=== PATIENT | female | born 1990 | race Caucasian/White ===

== ENCOUNTER 2018-07-06 13:02 | Inpatient (IN) ==
[2018-07-06 03:36] LABS: Bilirubin,Urine Negative (Negative); Blood,Urine Negative (Negative); Clarity,Urine Cloudy (Clear); Color,Urine Yellow (Yellow); Glucose,Urine (UA) Normal (Normal); Ketones,Urine Negative (Negative); Leukocyte Esterase,Urine Moderate (Negative); Nitrite,Urine Negative (Negative); PH,Urine 6.5 pH Units (5.0-8.0); Protein,Urine Negative (Neg-Trace); Specific Gravity,Urine 1.014 (1.010-1.025); Urobilinogen,Urine Normal (Normal)
[2018-07-06 03:39] LABS: Bacteria,Urine Many per hpf (None-Few); Hyaline Casts,Urine None Seen per lpf (None-Few); RBC,Urine 0-3 per hpf (0-3); Squamous Epithelial Cell,Urine Many per lpf (None-Few); WBC,Urine 30-50 per hpf (0-3)
[2018-07-06 03:46] LABS: Amphetamine Screen,Urine Negative ng/mL (Cutoff=1000); Barbiturate Screen,Urine Negative ng/mL (Cutoff=200); Benzodiazepines Screen,Urine Negative ng/mL (Cutoff=200); Cannabinoid Screen,Urine Negative ng/mL (Cutoff = 50); Cocaine Screen,Urine Negative ng/mL (Cutoff= 300); Opiate Screen,Urine Negative ng/mL (Cutoff=300); Phencyclidine Screen,Urine Negative ng/mL (Cutoff=25)
[2018-07-06 04:56] LABS: Creatinine,Urine 39 mg/dL; Protein/Creatinine Ratio,Urine 0.21 mg/mg (0.00-0.20)
[2018-07-06 05:42] LABS: Alanine Aminotransferase 8 Units/L (7-52); Aspartate Amino Transferase 11 Units/L (13-39); BUN/Creatinine Ratio 15 (6-26); Blood Urea Nitrogen 9 mg/dL (6-20); Lactate Dehydrogenase 112 Units/L (140-271); Uric Acid 3.9 mg/dL (2.3-7.6); eGFR For Non-African Americans > 60 (> 60)
--- NOTE | 2018-07-06 06:20 | OB/GYN Progress Note ---
Date of Encounter: 07/06/18 Time of Encounter: 06:17 - Assessment and Plan (1) 38 weeks gestation of Current Visit: Yes Status: Acute (2) Elevated blood pressure affecting in third trimester, antepartum Current Visit: Yes Status: Acute Consistent elevated BPs in triage (146/97, 151/98, 138/92 139/98), denies all PIH symptoms, PIH labs negative, Discussed patient with continue to monitor b/p, start 24 hour urine , continuous monitoring, keep NPO Subjective - Subjective Interval history: 38+[address] Fernandez previous C/S, presents to triage with vaginal pain, and cramping, reports good movement, denies vaginal bleeding or leaking of fluid, headache, visual changes, or RUQ pain. Antepartum ROS: movement normal, contractions, no loss of fluid, no vaginal bleeding Objective - Exam FHR: auscultation normal FHR comments: baseline 125 Abdomen: Present: soft, gravid Cervical dilation: closed on serial cervical exams - Labs Labs: Abnormal lab results AST 11 Units/L (13-39) L 07/06/18 04:41 Lactate Dehydrogenase 112 Units/L (140-271) L 07/06/18 04:41 Urine Clarity Cloudy (Clear) A 07/06/18 03:31 Ur Leukocyte Esterase Moderate (Negative) H 07/06/18 03:31 Urine Microscopic WBC 30-50 per hpf (0-3) H 07/06/18 03:31 Ur Squamous Epith Cells Many per lpf (None-Few) H 07/06/18 03:31 Urine Bacteria Many per hpf (None-Few) H 07/06/18 03:31 Ur Culture Indicated? NO. (NO) A 07/06/18 03:31 Protein/Creatinin Ratio 0.21 mg/mg (0.00-0.20) H 07/06/18 03:31
--- NOTE | 2018-07-06 12:48 | OB/GYN History & Physical ---
Date of Encounter: 07/06/18 Time of Encounter: 12:46 Assessment and Plan (1) 38 weeks gestation of Current visit: Yes Status: Acute (2) Gestational hyperglycemia Current visit: Yes Status: Acute (3) Previous section Current visit: Yes Status: Acute Juju is a 28-year-old female 3 para 1011 at 38 weeks and 1 day. Patient presents to labor and delivery with pelvic pressure. On presentation she has elevated blood pressures many of them in the severe range. All labs were normal. Patient is gestational hypertension with severe features. Patient currently complaining of headache. Will plan on repeat section. Consent obtained. History of Present Illness Chief complaint: pelvic pressure HPI: Ms. Noel is a 28 year old female P1 who presents to L&D complaining of pelvic pressure at 38.1 weeks. She presents to labor and delivery complaining of pelvic pressure. A presentation she has a slight headache today. Blood pressures ranging from high 130s to 170 over 80s to 100. Patient denies any vaginal bleeding or discharge. Baby is very active. Patient is nothing by mouth at this point. He has had blood pressures in the severe range. Because of this we will be planning on performing her repeat section. She has allergies to Vicodin. Current medications include her vitamins. She has no chronic medical conditions. Surgical history includes an ACL repair, MCL repair, previous section for macrosomia. She has no history of abnormal Pap smears, STDs or pelvic infections. She has no history of abnormal breast findings. Socially she denies tobacco, alcohol, illicit drug use. Family history significant for paternal grandmother with breast cancer; maternal grandfather with throat cancer; large family history of mental illness. Past Med Surg Social Fam HX - Past Medical History Medical history: no medical history Psychiatric history: no psych history - Past Surgical History Surgical History: Additional surgical history: Left ACL - Social History Smoking Status: Never smoker Smokeless Tobacco Status: No Alcohol use: none Drug use: none - Family History Mother Living Status: Still Living Hx Family GI Disorders: No (No GB issues) Father Adopted: [place]: Mitchel Connell Family Member Ethnicity: Non- Living Status: Still Living Hx Family Cardiac Disorders: Yes (hypertension) Hx Family Respiratory Disorders: No Hx Family Cancer: No Hx Family GI Disorders: No Hx Family Genitourinary Disorders: No Hx Family Endocrine Disorder: No Hx Family Musculoskeletal Disorders: No Hx Family Neuromuscular Disorders: No Hx Family Neurologic Disorders: No Hx Family HEENT Disorders: No Hx Family Autoimmune Disorders: No Hx Family Reproductive Disorders: No Hx Family Psychosocial Disorders: No Hx Family Medical Disorders: No Obstetrical History - Pregnancies : 3 Para: 1 Livin Medications and Allergies 3 Allergy/AdvReac Type Severity Reaction Status Date / Time No Known Allergies Allergy Verified 07/14/17 14:22 Review of System OB All systems PM: reviewed and no additional remarkable complaints except as stated Exam - Constitutional Constitutional: well developed, well nourished, no acute distress, obese - HEENT HEENT: PERRL - Neck Neck exam: full ROM - Lungs Respiratory exam: CTAB - Cardiovascular Cardiovascular exam: RRR - Breasts Breast: bilateral: normal - Abdomen Abdomen: Present: bowel sounds normal, gravid, non tender - Extremities Extremities exam: full ROM - Vagina Vagina: Present: normal moisture - Uterus Uterus exam: Present: normal size Results Result Diagrams: 07/06/18 04:41 Abnormal lab results AST 11 Units/L (13-39) L 07/06/18 04:41 Lactate Dehydrogenase 112 Units/L (140-271) L 07/06/18 04:41 Urine Clarity Cloudy (Clear) A 07/06/18 03:31 Ur Leukocyte Esterase Moderate (Negative) H 07/06/18 03:31 Urine Microscopic WBC 30-50 per hpf (0-3) H 07/06/18 03:31 Ur Squamous Epith Cells Many per lpf (None-Few) H 07/06/18 03:31 Urine Bacteria Many per hpf (None-Few) H 07/06/18 03:31 Ur Culture Indicated? NO. (NO) A 07/06/18 03:31 Protein/Creatinin Ratio 0.21 mg/mg (0.00-0.20) H 07/06/18 03:31 All other labs normal. - VTE Reasons for not Prescribing Prophylaxis: Treatment not Indicated - Low risk for VTE
[~2018-07-06 13:02] MED LIST: Acetaminophen 325 MG TABLET PO ONE; Famotidine 20 MG/2 ML VIAL IVP ONE; Metoclopramide 10 MG/2 ML VIAL IVP ONE; Ringers Solution, Lactated 1,000 ML IVC ONE; Ringers Solution, Lactated 1,000 ML IVC SCH
[2018-07-06 13:11] LABS: Basophils # 0.1 K/mcL (0.0-0.2); Basophils % 0.7 %; Eosinophils # 0.2 K/mcL (0.0-0.6); Eosinophils % 1.8 %; Hematocrit 34.1 % (35.3-44.9); Immature Granulocytes % 2.1 % (0-4); Lymphocytes # 2.1 K/mcL (0.6-4.6); Lymphocytes % 21.2 %; Mean Corpuscular HGB Conc 32.3 g/dL (31.6-35.5); Mean Corpuscular Hemoglobin 27.3 pg (28.0-33.3); Mean Corpuscular Volume 84.6 fL (83.0-100.0); Mean Platelet Volume 12.2 fL (9.4-12.4); Monocytes # 0.7 K/mcL (0.0-1.3); Monocytes % 6.9 %; Neutrophils # 6.7 K/mcL (1.6-8.9); Platelet Count 239 K/mcL (140-400); Red Blood Count 4.03 M/mcL (3.82-4.97); Red Cell Distribution Width 15.6 % (11.5-14.5); Segmented Neutrophils % 67.3 %
--- NOTE | 2018-07-06 13:47 | Anesthesia Evaluation PreOp ---
Date of Encounter: 07/06/18 Time of Encounter: 13:38 - Past History Planned Operation: MERY Cardiac History: Denies any Significant Hx, Other (PIH) Pulmonary History: Denies Any Significant HX BACK CLOSER History: Seizures Other Medical History: Denies Any Significant HX Anesthesia History: No Prior Anesthetic Complications, Past Anesthesia (Right knee ACL reconstruction) : Yes Alcohol Use: none Drug use: none Medications and Allergies 3 Allergy/AdvReac Type Severity Reaction Status Date / Time No Known Allergies Allergy Verified 07/14/17 14:22 - Meds/Allergy Pre-op Review Medications Reviewed: Yes Allergies Reviewed: Yes Beta Blockers on Current Med List: No Anesthesia Results - Labs 07/06/18 12:52 07/06/18 04:41 Anesthesia Exam BP 150/98 P88 R 16 T 97.4 Height: 5'2" Weight: 127.1kg NPO (# of Hours): 16 hrs solids 2hrs water Pain Scale: 0 Pain Scale Used: Numeric (1 - 10) - HEENT Pupil (Motor): Pupils equal Mallampati: II Teeth: Normal Oral Opening: Greater than 3 - BACK CLOSER LOC: Oriented BACK CLOSER Motor: Normal RUE, Normal LUE, Normal RLE, Normal LLE, Normal Face BACK CLOSER Sensory: Normal: RUE, LUE, RLE, LLE, Face - Cardiac Rhythm: Regular Murmur: None JVD: No Carotid Bruit: No - Pulmonary Breath Sounds: bilateral Clear Respiratory Effort: Symmetrical Anesthesia Assess/Plan ASA Score: 2 Modified [place] Scale for Level of Consciousness: Cooperative, oriented, and tranquil Anesthetic Plan: Regional Autologous Blood: No Monitoring Plan: Standard Monitors Recovery Plan: PACU
[2018-07-06] MEDS ORDERED: Lidocaine -MPF 1% 5 ML AMPUL ONE (13:51)
[2018-07-06] MEDS ORDERED: Bupivacaine/PF 0.75% in Dex 2 ML AMPUL INFILT ONE (13:51)
[2018-07-06] MEDS ORDERED: *HR* Morphine Sulfate/PF 10 MG/10 ML AMPUL ONE (13:54)
[2018-07-06] MEDS ORDERED: EPHEDrine 50 MG/ML VIAL ONE (14:08)
[2018-07-06] MEDS ORDERED: *HR* Phenylephrine 10 MG/ML VIAL ONE (14:14)
[2018-07-06] MEDS ORDERED: *HR* Oxytocin 10 UNIT/ML VIAL IM ONE (14:32)
[2018-07-06] MEDS ORDERED: Dexamethasone 4 MG/ML VIAL ONE (14:33)
[2018-07-06] MEDS ORDERED: Ondansetron 4 MG/2 ML VIAL ONE (14:33)
[2018-07-06] MEDS ORDERED: Dexamethasone 4 MG/ML VIAL IVP ONE (14:47)
[2018-07-06] MEDS ORDERED: *HR* HYDROmorphone (PF) 1 MG/ML SYRINGE IVP PRN (14:47)
[2018-07-06] MEDS ORDERED: *HR* Meperidine 25 MG/ML SYRINGE IVP PRN (14:47)
[2018-07-06] MEDS ORDERED: Ondansetron 4 MG/2 ML VIAL IVP ONE (14:47)
[2018-07-06] MEDS ORDERED: Naloxone 0.4 MG/ML INJ IVP PRN (14:47)
[2018-07-06] MEDS ORDERED: Acetaminophen IV 1,000 MG/100 ML INFUS..BTL IVPB ONE (14:47)
[2018-07-06] MEDS ORDERED: *HR* Promethazine 25 MG/ML VIAL IVP PRN (14:47)
[2018-07-06] MEDS ORDERED: *HR* OxyCODONE Immed Rel 5 MG TABLET PO PRN (14:47)
--- NOTE | 2018-07-06 14:52 | Anesthesia Procedures ---
Date of Encounter: 07/06/18 Time of Encounter: 14:06 Procedures: Anesthesia - Epidural/Spinal Patient ID/Chart reviewed: Yes Patient examined: Yes OB Eval: Gestational age: 38 OB Eval: : 2 OB Eval: Hx Para: 1 OB Eval: Contractions: Non-stressed pattern Consent Obtained: Yes Supplemental Oxygen: None/Room Air Supplemental Oxygen Rate (L/min): 4 Site Prep: Aseptic Technique, Sterile prep and drape, Povidone-Iodine 1% Patient position: upright Local Anesthetic: Lidocaine 1% Amount of Local Anesthetic used: 3 Interspace Used: L3-L4 Blood: No CSF: Yes Paresthesia: No Spinal Needle Gauge: 24 Spinal Dose: Bupivicaine 0.75% 1.6ml morphine 300mcg Procedure: Intrathecal dose administered 1st pass in upright position without any immediate noted complications. VSS throughout. Vitals + FHT's: See anesthesia record
[2018-07-06] MEDS ORDERED: Ringers Solution, Lactated 1,000 ML IVC SCH (15:00)
--- NOTE | 2018-07-06 15:10 | OB/GYN Procedure Note ---
Section - Date of procedure: 07/06/18 (hypertension, severe features) Preop diagnosis: desires repeat , other Post-op diagnosis: same Procedure: section, repeat low transverse Surgeon: Jamel Kilpatrick Blood Loss: 200 Was there an elementary assistant principal present: Yes Carpet Tile Layer: Yoana Wang Anesthesiologist: Sonny Ray Mash Filter Operator: Christian Boss Anesthesia Type: Epidural section complications: none Disposition: L&D Recovery Room Specimens: Placenta - Infant (s) Infant A Infant Delivery Date: 07/06/18 Delivery Time: 14:30 Presentation: vertex Position: OA Route of delivery: other Gender: Male Viability: Viable Pounds: 8 Ounces: 5 Gram Weight: 3.77 kg at 1 minute: 8 at 5 minutes: 9 Specimens collected: cord blood Placenta: spontaneous - Narrative Narrative: Juju is a 28-year-old female who presented to labor and delivery complaint pelvic pressure continuous headache. Patient's blood pressures ranged in the 140s to 170s over 80s to 100. Patient's blood pressures continued up-and-down with diastolic in the 100 range and systolics in the 170s. Because of this we discussed the need for section. Patient understands the risks of preeclampsia. All lab work and been normal. Patient' s headache was not resolved. Because of this we proceeded with a section. Informed consent was obtained. Patient was taken to the operating room for IV in place she was given epidural anesthesia. Once adequate analgesia was achieved she was prepped and draped in the usual sterile fashion. A Pfannenstiel incision was then made and carried sharply through subcutaneous taste and fatty tissue to the fascial layers reached. The fascia was then nicked in the midline and incised bilaterally with Roberts scissors was then dissected vertically for adequate exposure. Rectus abdominis muscles creatures and separate the midline and the peritoneum was sharply entered and dissected vertically. A bladder blade was placed at the inferior margin incision and the bladder flap was developed. Bladder blade was placed over the bladder flap and a low transverse incision was then made in the lower uterine segment. Fluid was noted be clear. There is a large amount of fluid. The infant was then delivered with minimal difficulty. cried immediately upon delivery course cut to cut the infant was in past nurse in attendance. Cord blood was obtained. The placenta was then delivered via uterine massage and then uterine lavage was performed. The uterus was delivered. The incision was then closed the Vicryl suture running locking fashion. There was excellent hemostasis. The uterus was replaced the pelvic cavity the pelvic cavity was then rinsed thoroughly with sterile water 2. There was no bleeding, the procedure was terminated. Sponge, needle and instrument counts correct 2. The fascia was then closed with 0 Vicryl suture in a running nonlocking fashion. The suprafascial region was rinsed thoroughly with sterile water 2 through subcutaneous stitches were placed. The skin was closed hussain. Patient tolerated procedure well. Blood loss 200 mL she delivered a male weight was 8 lbs. 5 oz., 3770 g. With Apgars 81 minute and 9 at 5 minutes.
[2018-07-06] MEDS ORDERED: Oxytocin 20 units/ LR 1000 mL 20 UNIT/1,000 ML BAG IVC ONE (15:28)
[2018-07-06] MEDS ORDERED: CeFAZolin Syr 3,000MG/30 ML 3,000 MG/30 ML SYRINGE IVPB SCH (16:00)
--- NOTE | 2018-07-06 16:07 | Anesthesia Evaluation Post Op ---
Date of Encounter: 07/06/18 Time of Encounter: 16:02 - Vital Signs Vital Signs: BP 131/68 P 66 R 16 T 97.5 spo2 97 - Lungs Lungs: Clear Ascult./Percussion - Airway Airway: Non-obstructed - Cardiovascular Regular Rate - Mental Status Mental Status: Alert & Oriented, Answers Appropriately - Pain Pain Scale: 0 Pain Scale used: Numeric (1 - 10) - Nausea Vomiting Nausea Vomiting: Not Present - Hydration Hydration: NPO, Anaya catheter - Discharge PostOp Status: Transfer Patient to floor
[2018-07-06] MEDS ORDERED: Sennosides 8.6 MG TABLET PO PRN (17:41)
[2018-07-06] MEDS ORDERED: Ondansetron 4 MG/2 ML VIAL IVP PRN (17:41)
[2018-07-06] MEDS ORDERED: Simethicone 80 MG TAB.CHEW PO PRN (17:41)
[2018-07-06] MEDS ORDERED: Oxytocin 20 units/ LR 1000 mL 20 UNIT/1,000 ML BAG IVC SCH (17:41)
[2018-07-06] MEDS ORDERED: Metoclopramide 10 MG/2 ML VIAL IVP PRN (17:41)
[2018-07-06 20:36] LABS: Basophils # 0.1 K/mcL (0.0-0.2); Basophils % 0.3 %; Eosinophils % 0.1 %; Hemoglobin 11.5 g/dL (11.5-15.4); Lymphocytes # 1.2 K/mcL (0.6-4.6); Mean Corpuscular HGB Conc 32.9 g/dL (31.6-35.5); Mean Corpuscular Hemoglobin 28.4 pg (28.0-33.3); Mean Corpuscular Volume 86.4 fL (83.0-100.0); Mean Platelet Volume 12.3 fL (9.4-12.4); Monocytes # 0.9 K/mcL (0.0-1.3); Monocytes % 5.1 %; Neutrophils # 14.5 K/mcL (1.6-8.9); Platelet Count 244 K/mcL (140-400); Red Blood Count 4.05 M/mcL (3.82-4.97); Red Cell Distribution Width 15.1 % (11.5-14.5); Segmented Neutrophils % 86.5 %
[2018-07-06 20:57] LABS: Alanine Aminotransferase 8 Units/L (7-52); Aspartate Amino Transferase 14 Units/L (13-39); BUN/Creatinine Ratio 15 (6-26); Blood Urea Nitrogen 8 mg/dL (6-20); Lactate Dehydrogenase 206 Units/L (140-271); Uric Acid 3.8 mg/dL (2.3-7.6); eGFR For Non-African Americans > 60 (> 60)
[2018-07-07] MEDS: CeFAZolin Syr 3,000MG/30 ML 3,000 MG/30 ML SYRINGE IVPB SCH ×2 (00:35→08:30)
[2018-07-07] MEDS: *HR* OxyCODONE/APAP 5/325 TABLET PO PRN ×2 (00:38→23:47)
--- NOTE | 2018-07-07 07:10 | OB/GYN Progress Note ---
Date of Encounter: 07/07/18 Time of Encounter: 07:07 - Assessment and Plan (1) 38 weeks gestation of Current Visit: Yes Status: Acute (2) Gestational hyperglycemia Current Visit: Yes Status: Acute (3) Previous section Current Visit: Yes Status: Acute Juju is a 28-year-old female 3 para 1011 at 38 weeks and 1 day. Patient presents to labor and delivery with pelvic pressure. On presentation she has elevated blood pressures many of them in the severe range. All labs were normal. Patient is gestational hypertension with severe features. Patient currently complaining of headache. Will plan on repeat section. Consent obtained. (4) Gestational hypertension Current Visit: Yes Status: Acute Qualifiers: Trimester: third trimester Qualified Code(s): O13.3 - Gestational [ -induced] hypertension without significant proteinuria, third trimester (5) Headache Current Visit: Yes Status: Acute Qualifiers: Headache type: new daily persistent Qualified Code(s): G44.52 - New daily persistent headache (NDPH) Subjective - Subjective Principal diagnosis: S/P C/S for gestational hypertension with severe features Interval history: Juju is a 28-year-old female who presented to labor and delivery complaining of headaches and pelvic pressure. Blood pressures 170/100 range on presentation. Multiple elevated pressures noted. All labs were normal. Because of hypertension patient underwent repeat section. Patient did well postoperatively. No complaints of any kind. Headache has since resolved. Patient feeling well. P.m. Labs reviewed. Morning labs pending. Patient with no visual changes, epigastric pain or increased swelling. Baby doing well this morning. Patient reports: appetite normal, voiding normally, pain well controlled, ambulating normally [place]: doing well Objective - Vital Signs Latest vital signs: Vital Signs Temp Pulse Resp BP Pulse Ox 07/07/18 04:32 98.1 F 89 16 129/76 98 07/06/18 23:50 98.0 F 79 16 125/77 98 07/06/18 20:41 97.9 F 89 16 153/78 98 07/06/18 19:35 98.0 F 100 14 136/90 99 07/06/18 18:41 97.7 F 101 16 122/89 100 07/06/18 18:10 97.5 F L 81 16 137/90 100 07/06/18 17:30 98.1 F 74 16 145/84 98 Intake and Output 07/06/18 07/06/18 07/07/18 15:59 23:59 07:59 Intake Total 400 / 400 Output Total 375 / 375 350 / 350 Balance -350 / -350 Intake: Oral 400 / 400 Output: Catheter 375 / 375 350 / 350 2-way Urethral 150 / 150 Other: Weight 127.187 kg 129.2 kg 122.425 kg Patient Weight 07/07/18 23:59 Weight 122.425 kg - Exam Lungs: bilateral: normal Chest: Normal S1, Normal S2 Extremities: Present: normal Abdomen: Present: normal appearance Incision: Present: normal, dry, intact Uterus: Present: normal, firm - Labs Labs: Laboratory Results - last 24 hr 07/06/18 07/06/18 07/06/18 12:52 12:52 20:01 WBC 9.9 16.8 H D RBC 4.03 4.05 Hgb 11.0 L 11.5 Hct 34.1 L 35.0 L MCV 84.6 86.4 MCH 27.3 L 28.4 MCHC 32.3 32.9 RDW 15.6 H 15.1 H Plt Count 239 244 MPV 12.2 12.3 Immature Gran % 2.1 1.0 Seg Neutrophils % 67.3 86.5 Lymphocytes % 21.2 7.0 Monocytes % 6.9 5.1 Eosinophils % 1.8 0.1 Basophils % 0.7 0.3 Neutrophils # 6.7 14.5 H Lymphocytes # 2.1 1.2 Monocytes # 0.7 0.9 Eosinophils # 0.2 0.0 Basophils # 0.1 0.1 BUN Creatinine Est GFR ( Amer) Est GFR (Non-Af Amer) BUN/Creatinine Ratio Uric Acid AST ALT Lactate Dehydrogenase Blood Type O POSITIVE Antibody Screen NEGATIVE 07/06/18 20:01 WBC RBC Hgb Hct MCV MCH MCHC RDW Plt Count MPV Immature Gran % Seg Neutrophils % Lymphocytes % Monocytes % Eosinophils % Basophils % Neutrophils # Lymphocytes # Monocytes # Eosinophils # Basophils # BUN 8 Creatinine 0.54 L Est GFR ( Amer) > 60 Est GFR (Non-Af Amer) > 60 BUN/Creatinine Ratio 15 Uric Acid 3.8 AST 14 ALT 8 Lactate Dehydrogenase 206 Blood Type Antibody Screen
[2018-07-07 07:12] LABS: Basophils # 0.1 K/mcL (0.0-0.2); Basophils % 0.4 %; Eosinophils # 0.1 K/mcL (0.0-0.6); Eosinophils % 0.6 %; Immature Granulocytes % 1.1 % (0-4); Lymphocytes # 1.8 K/mcL (0.6-4.6); Lymphocytes % 15.9 %; Mean Corpuscular HGB Conc 33.1 g/dL (31.6-35.5); Mean Corpuscular Hemoglobin 27.8 pg (28.0-33.3); Mean Corpuscular Volume 84.1 fL (83.0-100.0); Mean Platelet Volume 11.8 fL (9.4-12.4); Monocytes # 0.9 K/mcL (0.0-1.3); Monocytes % 7.8 %; Neutrophils # 8.4 K/mcL (1.6-8.9); Platelet Count 210 K/mcL (140-400); Red Blood Count 3.45 M/mcL (3.82-4.97); Red Cell Distribution Width 15.5 % (11.5-14.5); Segmented Neutrophils % 74.2 %
[2018-07-07 07:13] LABS: Hemoglobin 9.6 g/dL (11.5-15.4)
[2018-07-07 07:58] LABS: Alanine Aminotransferase 12 Units/L (7-52); Aspartate Amino Transferase 19 Units/L (13-39); BUN/Creatinine Ratio 14 (6-26); Blood Urea Nitrogen 8 mg/dL (6-20); Lactate Dehydrogenase 212 Units/L (140-271); eGFR For Non-African Americans > 60 (> 60)
[2018-07-07] MEDS: Ibuprofen 600 MG TABLET PO PRN ×3 (08:27→21:04)
[2018-07-07] MEDS: Prenatal Vit/FA 1 EACH TABLET PO SCH (08:28)
--- NOTE | 2018-07-08 07:17 | OB/GYN Progress Note ---
Date of Encounter: 07/08/18 Time of Encounter: 07:15 - Assessment and Plan (1) 38 weeks gestation of Current Visit: Yes Status: Acute (2) Gestational hyperglycemia Current Visit: Yes Status: Acute (3) Previous section Current Visit: Yes Status: Acute Juju is a 28-year-old female 3 para 1011 at 38 weeks and 1 day. Patient presents to labor and delivery with pelvic pressure. On presentation she has elevated blood pressures many of them in the severe range. All labs were normal. Patient is gestational hypertension with severe features. Patient currently complaining of headache. Will plan on repeat section. Consent obtained. (4) Gestational hypertension Current Visit: Yes Status: Acute Qualifiers: Trimester: third trimester Qualified Code(s): O13.3 - Gestational [ -induced] hypertension without significant proteinuria, third trimester (5) Headache Current Visit: Yes Status: Acute Qualifiers: Headache type: new daily persistent Qualified Code(s): G44.52 - New daily persistent headache (NDPH) Subjective - Subjective Principal diagnosis: POD#2 Interval history: 28-year-old female here for repeat section after elevated blood pressures noted in L&D. Patient with systolics in the 170s over 100s. Patient complaining of headache. Patient underwent repeat section without difficulty. Labs reviewed. Postoperatively patient did well. No complaints. She is up and about. Pressures came down nicely without requiring medication. Baby doing wonderfully. We will plan on discharge to home. Patient reports: appetite normal, voiding normally, pain well controlled, ambulating normally : doing well Objective - Vital Signs Latest vital signs: Vital Signs Temp Pulse Resp BP Pulse Ox 07/07/18 20:30 98.3 F 80 16 133/82 97 07/07/18 10:26 98.0 F 81 16 134/84 Intake and Output 07/07/18 07/07/18 07/08/18 15:59 23:59 07:59 Intake Total 400 / 400 100 / 100 Output Total 150 / 150 Balance 400 / 400 -50 / -50 Intake: Oral 400 / 400 100 / 100 Output: Urine 150 / 150 Other: Stool Characteristics Normal for Patient Weight 123.105 kg Patient Weight 07/08/18 23:59 Weight 123.105 kg - Exam Lungs: bilateral: normal Extremities: Present: normal Abdomen: Present: normal appearance Incision: Present: normal, intact Uterus: Present: normal - Labs Labs: Laboratory Results - last 24 hr 07/07/18 06:38 BUN 8 Creatinine 0.56 L Est GFR ( Amer) > 60 Est GFR (Non-Af Amer) > 60 BUN/Creatinine Ratio 14 Uric Acid 4.0 AST 19 ALT 12 Lactate Dehydrogenase 212
--- NOTE | 2018-07-08 07:19 | Discharge Summary ---
Date of Encounter: 07/08/18 Time of Encounter: 07:19 - Discharge Diagnosis (1) 38 weeks gestation of Priority: Secondary Status: Acute (2) Gestational hyperglycemia Priority: Secondary Status: Acute (3) Previous section Priority: Secondary Status: Acute (4) Gestational hypertension Priority: Secondary Status: Acute Qualifiers: Trimester: third trimester Qualified Code(s): O13.3 - Gestational [ -induced] hypertension without significant proteinuria, third trimester (5) Headache Priority: Secondary Status: Acute Qualifiers: Headache type: new daily persistent Qualified Code(s): G44.52 - New daily persistent headache (NDPH) (6) Status post repeat low transverse section Priority: Primary Status: Acute - Discharge Medications Prescriptions: OxyCODONE/APAP 5/325 [Percocet 5/325 MG] 1 each PO Q4H PRN 7 Days #28 tablet PRN Reason: Moderate pain 4-6 Home Medications: OxyCODONE/APAP 5/325 [Percocet 5/325 MG] 1 each PO Q4H PRN 7 Days #28 tablet [Rx] Allergies/Adverse Reactions: 3 Allergy/AdvReac Type Severity Reaction Status Date / Time No Known Allergies Allergy Verified 07/14/17 14:22 Data Procedures and tests throughout hospitalization: Laboratory Tests 07/06/18 07/06/18 07/06/18 03:31 03:31 04:41 WBC RBC Hgb Hct MCV MCH MCHC RDW Plt Count MPV Immature Gran % Seg Neutrophils % Lymphocytes % Monocytes % Eosinophils % Basophils % Neutrophils # Lymphocytes # Monocytes # Eosinophils # Basophils # BUN 9 Creatinine 0.60 Est GFR ( Amer) > 60 Est GFR (Non-Af Amer) > 60 BUN/Creatinine Ratio 15 Uric Acid 3.9 AST 11 L ALT 8 Lactate Dehydrogenase 112 L Urine Color Yellow Urine Clarity Cloudy A Urine pH 6.5 Ur Specific Hume 1.014 Urine Protein Negative Urine Glucose (UA) Normal Urine Ketones Negative Urine Blood Negative Urine Nitrite Negative Urine Bilirubin Negative Urine Urobilinogen Normal Ur Leukocyte Esterase Moderate H Urine Microscopic RBC 0-3 Urine Microscopic WBC 30-50 H Ur Squamous Epith Cells Many H Urine Bacteria Many H Hyaline Casts None Seen Ur Culture Indicated? NO. A Urine Creatinine 39 Protein/Creatinin Ratio 0.21 H Urine Total Protein 8 Urine Opiates Screen Negative Ur Barbiturates Screen Negative Ur Phencyclidine Scrn Negative Ur Amphetamines Screen Negative U Benzodiazepines Scrn Negative Urine Cocaine Screen Negative U Marijuana (THC) Screen Negative Ur Drug Screen Interp See Below Blood Type Antibody Screen 07/06/18 07/06/18 07/06/18 12:52 12:52 20:01 WBC 9.9 16.8 H D RBC 4.03 4.05 Hgb 11.0 L 11.5 Hct 34.1 L 35.0 L MCV 84.6 86.4 MCH 27.3 L 28.4 MCHC 32.3 32.9 RDW 15.6 H 15.1 H Plt Count 239 244 MPV 12.2 12.3 Immature Gran % 2.1 1.0 Seg Neutrophils % 67.3 86.5 Lymphocytes % 21.2 7.0 Monocytes % 6.9 5.1 Eosinophils % 1.8 0.1 Basophils % 0.7 0.3 Neutrophils # 6.7 14.5 H Lymphocytes # 2.1 1.2 Monocytes # 0.7 0.9 Eosinophils # 0.2 0.0 Basophils # 0.1 0.1 BUN Creatinine Est GFR ( Amer) Est GFR (Non-Af Amer) BUN/Creatinine Ratio Uric Acid AST ALT Lactate Dehydrogenase Urine Color Urine Clarity Urine pH Ur Specific Hume Urine Protein Urine Glucose (UA) Urine Ketones Urine Blood Urine Nitrite Urine Bilirubin Urine Urobilinogen Ur Leukocyte Esterase Urine Microscopic RBC Urine Microscopic WBC Ur Squamous Epith Cells Urine Bacteria Hyaline Casts Ur Culture Indicated? Urine Creatinine Protein/Creatinin Ratio Urine Total Protein Urine Opiates Screen Ur Barbiturates Screen Ur Phencyclidine Scrn Ur Amphetamines Screen U Benzodiazepines Scrn Urine Cocaine Screen U Marijuana (THC) Screen Ur Drug Screen Interp Blood Type O POSITIVE Antibody Screen NEGATIVE 07/06/18 07/07/18 07/07/18 20:01 06:38 06:38 WBC 11.3 H RBC 3.45 L Hgb 9.6 L D Hct 29.0 L MCV 84.1 MCH 27.8 L MCHC 33.1 RDW 15.5 H Plt Count 210 MPV 11.8 Immature Gran % 1.1 Seg Neutrophils % 74.2 Lymphocytes % 15.9 Monocytes % 7.8 Eosinophils % 0.6 Basophils % 0.4 Neutrophils # 8.4 Lymphocytes # 1.8 Monocytes # 0.9 Eosinophils # 0.1 Basophils # 0.1 BUN 8 8 Creatinine 0.54 L 0.56 L Est GFR ( Amer) > 60 > 60 Est GFR (Non-Af Amer) > 60 > 60 BUN/Creatinine Ratio 15 14 Uric Acid 3.8 4.0 AST 14 19 ALT 8 12 Lactate Dehydrogenase 206 212 Urine Color Urine Clarity Urine pH Ur Specific Hume Urine Protein Urine Glucose (UA) Urine Ketones Urine Blood Urine Nitrite Urine Bilirubin Urine Urobilinogen Ur Leukocyte Esterase Urine Microscopic RBC Urine Microscopic WBC Ur Squamous Epith Cells Urine Bacteria Hyaline Casts Ur Culture Indicated? Urine Creatinine Protein/Creatinin Ratio Urine Total Protein Urine Opiates Screen Ur Barbiturates Screen Ur Phencyclidine Scrn Ur Amphetamines Screen U Benzodiazepines Scrn Urine Cocaine Screen U Marijuana (THC) Screen Ur Drug Screen Interp Blood Type Antibody Screen Labs on day of discharge: Labs from last 24 hours 07/07/18 06:38 BUN 8 Creatinine 0.56 L Est GFR ( Amer) > 60 Est GFR (Non-Af Amer) > 60 BUN/Creatinine Ratio 14 Uric Acid 4.0 AST 19 ALT 12 Lactate Dehydrogenase 212 Date of admission: 07/06/18 13:02 Primary care physician: PCP NONE Discharging clinician: Jamel Fernandez - Patient Status Disposition: Home, Self-Care Condition: Good Functional capacity at discharge: independent ambulation Overall status at discharge: patient is back to baseline - Discharge Instructions Follow Up With: NONE,PCP [Primary Care Provider] - - Diet and Activity Activity: increase activity as tolerated Diet: advance to your usual diet Hospital Course [employer]LY[employer] Time Attestation: Total time spent providing and/or coordinating discharge services: Exam - Constitutional Vitals: Temp Pulse Resp BP Pulse Ox 98.3 F 80 16 133/82 97 07/07/18 20:30 07/07/18 20:30 07/07/18 20:30 07/07/18 20:30 07/07/18 20:30 General appearance IM: A&O X 3 - Respiratory Respiratory exam: Present: CTAB - Cardiovascular Cardiovascular exam IM: Present: RRR - GI/Abdominal GI/Abdominal exam IM: normal bowel sounds, soft Incision: normal, dry, intact - Uterus Position: 3 Fingers Below Umbilicus - Extremities Exam Extremities exam IM: Present: normal inspection - VTE Reasons for not Prescribing Prophylaxis: Treatment not Indicated - Low risk for VTE Documentation of Mechanical Device: Intermittent pneumatic compression device
[2018-07-08] MEDS: *HR* OxyCODONE/APAP 5/325 TABLET PO PRN (07:46)
[2018-07-08] MEDS: Prenatal Vit/FA 1 EACH TABLET PO SCH (07:46)
[2018-07-08 08:25] VITALS: BP 142/96
[2018-07-08] MEDS: Ibuprofen 600 MG TABLET PO PRN (10:16)
[2018-07-08] MEDS ORDERED: CeFAZolin Syr 3,000MG/30 ML 3,000 MG/30 ML SYRINGE IVPB SCH (16:30)
== END 2018-07-08 13:45 | disposition home or self-care (01) | DRG 765 ==
LOC: 1NENULAB → 1NENUOBS 17:30
PROVIDERS: ADMIT Obstetrics & Gynecology; ATTEND Obstetrics & Gynecology

== ENCOUNTER → 2020-12-08 11:58 | Observation (INO) ==
[2020-12-08 11:49] VITALS: BP 137/88
[2020-12-08 11:55] LABS: Basophils # 0.1 K/mcL (0.0-0.2); Basophils % 0.5 %; Eosinophils # 0.1 K/mcL (0.0-0.6); Eosinophils % 1.1 %; Hematocrit 35.7 % (35.3-44.9); Hemoglobin 10.9 g/dL (11.5-15.4); Immature Granulocytes % 1.2 % (0-4); Lymphocytes # 1.8 K/mcL (0.6-4.6); Lymphocytes % 16.6 %; Mean Corpuscular HGB Conc 30.5 g/dL (31.6-35.5); Mean Corpuscular Hemoglobin 27.6 pg (28.0-33.3); Mean Corpuscular Volume 90.4 fL (83.0-100.0); Mean Platelet Volume 12.7 fL (9.4-12.4); Monocytes # 0.7 K/mcL (0.0-1.3); Neutrophils # 8.1 K/mcL (1.6-8.9); Platelet Count 218 K/mcL (140-400); Red Blood Count 3.95 M/mcL (3.82-4.97); Red Cell Distribution Width 14.6 % (11.5-14.5); Segmented Neutrophils % 74.6 %; White Blood Count 10.9 K/mcL (4.3-11.1)
[2020-12-08 12:18] LABS: Alanine Aminotransferase 8 Units/L (7-52); Aspartate Amino Transferase 12 Units/L (13-39); BUN/Creatinine Ratio 18 (6-26); Blood Urea Nitrogen 10 mg/dL (6-20); Lactate Dehydrogenase 147 Units/L (140-271); Uric Acid 4.8 mg/dL (2.3-7.6); eGFR For African Americans > 60 (> 60); eGFR For Non-African Americans > 60 (> 60)
[2020-12-08 13:23] LABS: Bacteria,Urine Few per hpf (None-Few); Bilirubin,Urine Negative (Negative); Blood,Urine Negative (Negative); Clarity,Urine Turbid (Clear); Color,Urine Yellow (Yellow); Glucose,Urine (UA) Normal (Normal); Ketones,Urine Negative (Negative); Leukocyte Esterase,Urine Large (Negative); Mucus,Urine Few per lpf (None-Few); Nitrite,Urine Negative (Negative); Protein,Urine Trace mg/dL (Neg-Trace); Specific Gravity,Urine 1.025 (1.010-1.025); Squamous Epithelial Cell,Urine Moderate per hpf (None-Few); Urobilinogen,Urine Normal (Normal)
[2020-12-08 13:25] LABS: Protein/Creatinine Ratio,Urine 0.14 mg/mg (0.00-0.20)
== END | disposition home or self-care (01) ==
LOC: 1NENULAB
PROVIDERS: ADMIT Obstetrics & Gynecology; ATTEND Obstetrics & Gynecology

== ENCOUNTER → 2020-12-10 21:53 | Observation (INO) ==
[2020-12-10 20:11] LABS: Protein/Creatinine Ratio,Urine 0.18 mg/mg (0.00-0.20)
[2020-12-10 20:14] LABS: Basophils # 0.1 K/mcL (0.0-0.2); Basophils % 0.4 %; Eosinophils # 0.2 K/mcL (0.0-0.6); Eosinophils % 1.4 %; Hematocrit 33.6 % (35.3-44.9); Hemoglobin 10.7 g/dL (11.5-15.4); Immature Granulocytes % 1.3 % (0-4); Lymphocytes # 2.1 K/mcL (0.6-4.6); Lymphocytes % 18.4 %; Mean Corpuscular HGB Conc 31.8 g/dL (31.6-35.5); Mean Corpuscular Hemoglobin 28.4 pg (28.0-33.3); Mean Corpuscular Volume 89.1 fL (83.0-100.0); Mean Platelet Volume 12.8 fL (9.4-12.4); Monocytes # 0.8 K/mcL (0.0-1.3); Platelet Count 234 K/mcL (140-400); Red Blood Count 3.77 M/mcL (3.82-4.97); Red Cell Distribution Width 14.6 % (11.5-14.5); Segmented Neutrophils % 71.5 %; White Blood Count 11.2 K/mcL (4.3-11.1)
[2020-12-10 20:20] LABS: Alanine Aminotransferase 7 Units/L (7-52); Aspartate Amino Transferase 11 Units/L (13-39); BUN/Creatinine Ratio 20 (6-26); Blood Urea Nitrogen 11 mg/dL (6-20); Lactate Dehydrogenase 129 Units/L (140-271); Uric Acid 4.2 mg/dL (2.3-7.6); eGFR For African Americans > 60 (> 60); eGFR For Non-African Americans > 60 (> 60)
[~2020-12-10 21:53] MED LIST changes: -Acetaminophen 325 MG TABLET PO ONE; +Acetaminophen/Butalbital/CaffeineTABLET PO ONE; +FLU Vac QV 20-21 (6Month+)/PF 0.5 ML SYRINGE IM ONE; -Famotidine 20 MG/2 ML VIAL IVP ONE; -Metoclopramide 10 MG/2 ML VIAL IVP ONE; -Ringers Solution, Lactated 1,000 ML IVC SCH
== END | disposition home or self-care (01) ==
LOC: 1NENULAB
PROVIDERS: ADMIT Obstetrics & Gynecology; ATTEND Obstetrics & Gynecology

== ENCOUNTER 2020-12-14 20:47 | Inpatient (IN) ==
[2020-12-14 20:35] LABS: Basophils # 0.1 K/mcL (0.0-0.2); Basophils % 0.5 %; Eosinophils # 0.2 K/mcL (0.0-0.6); Eosinophils % 1.8 %; Hematocrit 34.8 % (35.3-44.9); Hemoglobin 11.2 g/dL (11.5-15.4); Immature Granulocytes % 1.3 % (0-4); Lymphocytes # 2.2 K/mcL (0.6-4.6); Lymphocytes % 19.6 %; Mean Corpuscular HGB Conc 32.2 g/dL (31.6-35.5); Mean Corpuscular Hemoglobin 28.4 pg (28.0-33.3); Mean Corpuscular Volume 88.1 fL (83.0-100.0); Mean Platelet Volume 12.4 fL (9.4-12.4); Monocytes # 0.9 K/mcL (0.0-1.3); Monocytes % 7.7 %; Neutrophils # 7.9 K/mcL (1.6-8.9); Platelet Count 239 K/mcL (140-400); Red Blood Count 3.95 M/mcL (3.82-4.97); Red Cell Distribution Width 14.6 % (11.5-14.5); Segmented Neutrophils % 69.1 %; White Blood Count 11.4 K/mcL (4.3-11.1)
[2020-12-14 20:43] LABS: Creatinine,Urine 82 mg/dL; Protein/Creatinine Ratio,Urine 0.26 mg/mg (0.00-0.20)
[~2020-12-14 20:47] MED LIST changes: +*HR* Labetalol 20 MG/4 ML SYRINGE IVP ONE; -Acetaminophen/Butalbital/CaffeineTABLET PO ONE; +Azithromycin 500 MG in 0.9 % Sodium Chloride 250 ML IVPB ONE; +CeFAZolin Syr 3,000MG/30 ML 3,000 MG/30 ML SYRINGE IVPB ONE; -FLU Vac QV 20-21 (6Month+)/PF 0.5 ML SYRINGE IM ONE; +Famotidine 20 MG/2 ML VIAL IVP ONE; +Magnesium Sulf 20 gm/SW 500mL 20 GM/500 ML IV.SOLN IVC SCH; +Metoclopramide 10 MG/2 ML VIAL IVP ONE; -Ringers Solution, Lactated 1,000 ML IVC ONE
[2020-12-14 20:53] LABS: Alanine Aminotransferase 8 Units/L (7-52); Aspartate Amino Transferase 12 Units/L (13-39); BUN/Creatinine Ratio 20 (6-26); Blood Urea Nitrogen 13 mg/dL (6-20); Lactate Dehydrogenase 124 Units/L (140-271); Uric Acid 4.8 mg/dL (2.3-7.6); eGFR For African Americans > 60 (> 60); eGFR For Non-African Americans > 60 (> 60)
[2020-12-14] MEDS: Betamethasone Acet/SodPhos 30 MG/5 ML VIAL IM SCH (21:12)
[2020-12-14 22:03] LABS: Influenza A PCR Negative (Negative); Influenza B PCR Negative (Negative); Resp. Syncytial Virus PCR Negative (Negative)
[2020-12-14 22:05] LABS: SARS-CoV-2 by PCR (In House) Negative (Negative)
[2020-12-14] MEDS ORDERED: Ondansetron 4 MG/2 ML VIAL IVP PRN (22:57)
[2020-12-14] MEDS ORDERED: Prochlorperazine 10 MG/2 ML VIAL IVP PRN (23:49)
[2020-12-15 06:56] LABS: Basophils % 0.3 %; Eosinophils % 0.1 %; Hematocrit 34.9 % (35.3-44.9); Hemoglobin 10.8 g/dL (11.5-15.4); Immature Granulocytes % 1.5 % (0-4); Lymphocytes # 1.5 K/mcL (0.6-4.6); Lymphocytes % 10.3 %; Mean Corpuscular HGB Conc 30.9 g/dL (31.6-35.5); Mean Corpuscular Hemoglobin 27.3 pg (28.0-33.3); Mean Corpuscular Volume 88.1 fL (83.0-100.0); Mean Platelet Volume 12.7 fL (9.4-12.4); Monocytes # 0.4 K/mcL (0.0-1.3); Monocytes % 2.8 %; Platelet Count 242 K/mcL (140-400); Red Blood Count 3.96 M/mcL (3.82-4.97); Red Cell Distribution Width 14.6 % (11.5-14.5); White Blood Count 14.1 K/mcL (4.3-11.1)
[2020-12-15 07:17] LABS: Alanine Aminotransferase 7 Units/L (7-52); Aspartate Amino Transferase 11 Units/L (13-39); BUN/Creatinine Ratio 20 (6-26); Blood Urea Nitrogen 13 mg/dL (6-20); Lactate Dehydrogenase 126 Units/L (140-271); Uric Acid 4.8 mg/dL (2.3-7.6); eGFR For African Americans > 60 (> 60); eGFR For Non-African Americans > 60 (> 60)
[2020-12-15] MEDS ORDERED: Prenatal Vit/FA 1 EACH TABLET PO SCH (09:00)
[2020-12-15] MEDS ORDERED: Acetaminophen 325 MG TABLET PO ONE (18:52)
[2020-12-15] MEDS ORDERED: Prochlorperazine 10 MG/2 ML VIAL IVP PRN (19:25)
[2020-12-15] MEDS: Betamethasone Acet/SodPhos 30 MG/5 ML VIAL IM SCH (20:43)
[2020-12-16 09:40] LABS: Total Volume 24 Hour,Urine 0.73 Liters (0.60-1.60)
[2020-12-16 12:13] LABS: Amphetamine Screen,Urine Negative ng/mL (Cutoff=1000); Barbiturate Screen,Urine Positive ng/mL (Cutoff=200); Benzodiazepines Screen,Urine Negative ng/mL (Cutoff=200); Cannabinoid Screen,Urine Negative ng/mL (Cutoff = 50); Cocaine Screen,Urine Negative ng/mL (Cutoff= 300); Opiate Screen,Urine Negative ng/mL (Cutoff=300); Phencyclidine Screen,Urine Negative ng/mL (Cutoff=25)
== END 2020-12-16 13:34 | disposition home or self-care (01) ==
LOC: 1NENULAB
PROVIDERS: ADMIT Registered Nurse; ATTEND Registered Nurse

== ENCOUNTER → 2020-12-19 13:12 | Observation (INO) ==
[2020-12-19 12:10] LABS: Basophils # 0.1 K/mcL (0.0-0.2); Basophils % 0.6 %; Eosinophils # 0.2 K/mcL (0.0-0.6); Eosinophils % 1.4 %; Hematocrit 34.4 % (35.3-44.9); Hemoglobin 10.9 g/dL (11.5-15.4); Immature Granulocytes % 2.2 % (0-4); Lymphocytes # 2.1 K/mcL (0.6-4.6); Lymphocytes % 16.7 %; Mean Corpuscular HGB Conc 31.7 g/dL (31.6-35.5); Mean Corpuscular Hemoglobin 27.9 pg (28.0-33.3); Mean Corpuscular Volume 88.2 fL (83.0-100.0); Mean Platelet Volume 12.3 fL (9.4-12.4); Monocytes % 7.6 %; Neutrophils # 9.1 K/mcL (1.6-8.9); Platelet Count 230 K/mcL (140-400); Red Cell Distribution Width 14.8 % (11.5-14.5); Segmented Neutrophils % 71.5 %; White Blood Count 12.8 K/mcL (4.3-11.1)
[2020-12-19 12:18] LABS: Protein/Creatinine Ratio,Urine 0.12 mg/mg (0.00-0.20)
[2020-12-19 12:29] LABS: Alanine Aminotransferase 11 Units/L (7-52); Aspartate Amino Transferase 11 Units/L (13-39); BUN/Creatinine Ratio 21 (6-26); Blood Urea Nitrogen 12 mg/dL (6-20); Lactate Dehydrogenase 151 Units/L (140-271); Uric Acid 5.3 mg/dL (2.3-7.6); eGFR For African Americans > 60 (> 60); eGFR For Non-African Americans > 60 (> 60)
== END | disposition home or self-care (01) ==
LOC: 1NENULAB
PROVIDERS: ADMIT Obstetrics & Gynecology; ATTEND Obstetrics & Gynecology

== ENCOUNTER 2020-12-26 05:25 | Inpatient (IN) ==
[2020-12-26] MEDS ORDERED: Ringers Solution, Lactated 1,000 ML ONE ×3 (05:51→07:04)
[2020-12-26] MEDS ORDERED: Metoclopramide 10 MG/2 ML VIAL IVP ONE (06:21)
[2020-12-26] MEDS ORDERED: Famotidine 20 MG/2 ML VIAL IVP ONE (06:21)
[2020-12-26] MEDS ORDERED: Ringers Solution, Lactated 1,000 ML IVC ONE (06:21)
[2020-12-26] MEDS ORDERED: CeFAZolin Syr 3,000MG/30 ML 3,000 MG/30 ML SYRINGE IVPB ONE (06:21)
[2020-12-26] MEDS ORDERED: Famotidine 20 MG/2 ML VIAL IVP PRN (06:33)
[2020-12-26] MEDS ORDERED: Naloxone 0.4 MG/ML INJ IVP PRN (06:33)
[2020-12-26] MEDS ORDERED: Metoclopramide 10 MG/2 ML VIAL IVP PRN ×2 (06:33→11:59)
[2020-12-26 06:55] LABS: Basophils # 0.1 K/mcL (0.0-0.2); Basophils % 0.7 %; Eosinophils # 0.2 K/mcL (0.0-0.6); Eosinophils % 1.5 %; Hemoglobin 10.7 g/dL (11.5-15.4); Immature Granulocytes % 1.8 % (0-4); Lymphocytes # 2.4 K/mcL (0.6-4.6); Lymphocytes % 19.7 %; Mean Corpuscular HGB Conc 32.4 g/dL (31.6-35.5); Mean Corpuscular Hemoglobin 28.2 pg (28.0-33.3); Mean Corpuscular Volume 86.8 fL (83.0-100.0); Mean Platelet Volume 12.8 fL (9.4-12.4); Monocytes # 0.8 K/mcL (0.0-1.3); Monocytes % 6.9 %; Neutrophils # 8.5 K/mcL (1.6-8.9); Platelet Count 228 K/mcL (140-400); Red Cell Distribution Width 15.1 % (11.5-14.5); Segmented Neutrophils % 69.4 %; White Blood Count 12.3 K/mcL (4.3-11.1)
[2020-12-26] MEDS ORDERED: *HR* Morphine Sulfate/PF 10 MG/10 ML AMPUL ONE (06:58)
[2020-12-26] MEDS ORDERED: EPHEDrine 50 MG/ML VIAL ONE (06:58)
[2020-12-26] MEDS ORDERED: *HR* FentaNYL (PF) 100 MCG/2 ML VIAL ONE (06:58)
[2020-12-26] MEDS ORDERED: *HR* Phenylephrine 10 MG/ML VIAL ONE (06:59)
[2020-12-26] MEDS ORDERED: Ketorolac 30 MG/ML VIAL ONE (06:59)
[2020-12-26] MEDS ORDERED: Ondansetron 4 MG/2 ML VIAL ONE (06:59)
[2020-12-26] MEDS ORDERED: *HR* Midazolam HCl 2 MG/2 ML VIAL ONE (07:01)
[2020-12-26] MEDS ORDERED: *HR* Oxytocin 10 UNIT/ML VIAL IM ONE (07:05)
[2020-12-26] MEDS ORDERED: Acetaminophen IV 1,000 MG/100 ML BAG IVPB ONE (08:03)
[2020-12-26] MEDS ORDERED: *HR* Meperidine 25 MG/ML SYRINGE IVP PRN (08:07)
[2020-12-26] MEDS ORDERED: Promethazine 6.25 MG in Water for inj. (sterile) 20 ML IVPB PRN (08:07)
[2020-12-26] MEDS ORDERED: *HR* HYDROmorphone PF 0.5 MG/0.5 ML SYRINGE IVP PRN (08:07)
[2020-12-26] MEDS ORDERED: *HR* Labetalol 20 MG/4 ML SYRINGE IVP PRN (08:07)
[2020-12-26 08:35] LABS: Amphetamine Screen,Urine Negative ng/mL (Cutoff=1000); Barbiturate Screen,Urine Negative ng/mL (Cutoff=200); Benzodiazepines Screen,Urine Negative ng/mL (Cutoff=200); Cannabinoid Screen,Urine Negative ng/mL (Cutoff = 50); Cocaine Screen,Urine Negative ng/mL (Cutoff= 300); Opiate Screen,Urine Negative ng/mL (Cutoff=300); Phencyclidine Screen,Urine Negative ng/mL (Cutoff=25)
[2020-12-26] MEDS ORDERED: Silver Nitrate Applicator 1 STICK..EA. TP ONE (09:10)
[2020-12-26 09:14] LABS: Alanine Aminotransferase 9 Units/L (7-52); Aspartate Amino Transferase 15 Units/L (13-39); BUN/Creatinine Ratio 20 (6-26); Blood Urea Nitrogen 15 mg/dL (6-20); Lactate Dehydrogenase 198 Units/L (140-271); Uric Acid 5.1 mg/dL (2.3-7.6); eGFR For African Americans > 60 (> 60); eGFR For Non-African Americans > 60 (> 60)
[2020-12-26 11:27] LABS: Creatinine,Urine 101 mg/dL; Protein/Creatinine Ratio,Urine 0.24 mg/mg (0.00-0.20)
[2020-12-26] MEDS ORDERED: Simethicone 80 MG TAB.CHEW PO PRN (11:59)
[2020-12-26] MEDS ORDERED: Ringers Solution, Lactated 1,000 ML IVC SCH (11:59)
[2020-12-26] MEDS ORDERED: Ondansetron 4 MG/2 ML VIAL IVP PRN (11:59)
[2020-12-26] MEDS ORDERED: Rho Immune Globulin 1,500 UNIT SYRINGE IM ONE (11:59)
[2020-12-26] MEDS ORDERED: Sennosides 8.6 MG TABLET PO PRN (11:59)
[2020-12-26] MEDS ORDERED: Oxytocin 20 units/ LR 1000 mL 20 UNIT/1,000 ML BAG IVC SCH (11:59)
[2020-12-26] MEDS: Ibuprofen 600 MG TABLET PO SCH ×2 (12:26→18:19)
[2020-12-26] MEDS: Acetaminophen 325 MG TABLET PO SCH ×2 (12:26→15:08)
[2020-12-26] MEDS: *HR* OxyCODONE Immed Rel 5 MG TABLET PO SCH ×3 (15:04→22:09)
[2020-12-27] MEDS: Acetaminophen 325 MG TABLET PO SCH ×2 (00:06→06:13)
[2020-12-27] MEDS: Ibuprofen 600 MG TABLET PO SCH ×2 (00:06→06:13)
[2020-12-27] MEDS: *HR* OxyCODONE Immed Rel 5 MG TABLET PO SCH ×3 (00:07→07:59)
[2020-12-27 05:07] LABS: Basophils % 0.3 %; Eosinophils # 0.1 K/mcL (0.0-0.6); Eosinophils % 0.4 %; Hematocrit 26.2 % (35.3-44.9); Immature Granulocytes % 1.2 % (0-4); Lymphocytes # 1.9 K/mcL (0.6-4.6); Lymphocytes % 16.4 %; Mean Corpuscular HGB Conc 32.1 g/dL (31.6-35.5); Mean Corpuscular Hemoglobin 28.2 pg (28.0-33.3); Mean Corpuscular Volume 87.9 fL (83.0-100.0); Mean Platelet Volume 12.7 fL (9.4-12.4); Monocytes # 0.9 K/mcL (0.0-1.3); Monocytes % 7.5 %; Neutrophils # 8.6 K/mcL (1.6-8.9); Platelet Count 176 K/mcL (140-400); Red Blood Count 2.98 M/mcL (3.82-4.97); Red Cell Distribution Width 15.2 % (11.5-14.5); Segmented Neutrophils % 74.2 %; White Blood Count 11.6 K/mcL (4.3-11.1)
[2020-12-27 05:10] LABS: Hemoglobin 8.4 g/dL (11.5-15.4)
[2020-12-27 07:50] VITALS: BP 122/85
[2020-12-27] MEDS ORDERED: Prenatal Vit/FA 1 EACH TABLET PO SCH (09:00)
== END 2020-12-27 13:15 | disposition home or self-care (01) | DRG 788 ==
LOC: 1NENULAB 05:25 → 1NENUOBS 12:00
PROVIDERS: ADMIT Student in an Organized Health Care Education/Training Program; ATTEND Student in an Organized Health Care Education/Training Program